=== PATIENT | male | born 1950 ===

== ENCOUNTER 2017-03-11 07:45 | Emergency (ER) | payer MEDICARE, MEDICAID ==
[2017-03-11] MEDS ORDERED: Naproxen 550 mg Tab PO STA (08:25)
--- NOTE | 2017-03-11 08:34 | C.PDOC ---
History Of Present Illness 66 y/o male presents to ED with complaint of right testicular pain associated with lump in same area for approximately "one month". Patient was evaluated by his PMD Dr. High for these symptoms, and sent for outpatient ultrasound ( December,). Patient has US report with him today, showed testicular cysts. Patient has not yet been evaluated by urologist. He denies fever, abdominal/ flank pain, dysuria/hematuria, penile discharge. Time Seen by Provider: 03/11/17 07:57 Chief Complaint (Nursing): Male Genitourinary History Per: Patient History/Exam Limitations: no limitations Onset/Duration Of Symptoms: Persistent Current Symptoms Are (Timing): Better Severity: Mild Quality Of Discomfort: "Pain" Associated Symptoms: denies: Fever, Chills, Diarrhea, Urinary Symptoms Past Medical History Reviewed: Historical Data, Nursing Documentation, Vital Signs Vital Signs: Last Vital Signs Temp 98.2 F 03/11/17 10:00 Pulse 87 03/11/17 10:00 Resp 16 03/11/17 10:00 BP 137/89 03/11/17 10:00 Pulse Ox 98 03/11/17 10:14 - Medical History PMH: HTN Family History: States: No Known Family Hx - Social History Hx Alcohol Use: No Hx Substance Use: No - Immunization History Hx Tetanus Toxoid Vaccination: No Hx Influenza Vaccination: No Hx Pneumococcal Vaccination: No Review Of Systems Except As Marked, All Systems Reviewed And Found Negative. Constitutional: Negative for: Fever, Chills Gastrointestinal: Negative for: Nausea, Vomiting, Abdominal Pain, Diarrhea Genitourinary: Positive for: Other (testicular pain ). Negative for: Dysuria, Frequency, Hematuria, Penile Discharge Skin: Negative for: Rash Physical Exam - Physical Exam Appears: Well, Non-toxic, No Acute Distress Skin: Warm, Dry Oral Mucosa: Moist Cardiovascular: Rhythm Regular Respiratory: Normal Breath Sounds, No Rales, No Rhonchi, No Wheezing Gastrointestinal/Abdominal: Normal Exam, Bowel Sounds, Soft, No Tenderness, No Rebound Back: Normal Inspection, No CVA Tenderness Male Genital: Normal Inspection, No Testicular Tenderness, No Testicular Swelling, No Inguinal Tenderness, No Inguinal Swelling, No Scrotal Swelling, Other (no masses, no erythema) Extremity: Normal ROM Neurological/Psych: Oriented x3 ED Course And Treatment O2 Sat by Pulse Oximetry: 98 (RA) Pulse Ox Interpretation: Normal - CT Scan/US Testicular Ultrasound Other Rad Studies (CT/US): Read By Radiologist, Radiology Report Reviewed CT/US Interpretation: Findings: Right testes: 3.4 x 1.9 x 2.9 centimeters. Normal flow. Homogeneous echotexture. Right epididymis measures 1.7 x 1.1 x 2.0 centimeters. Normal flow. Normal echotexture. Right epididymal cyst measuring .9 x .9 x 1.3 centimeters. Left testes: 3.7 x 2.1 x 3.1 centimeters. Normal flow. Homogeneous echotexture. Left epididymis measures 1.3 x 0.9 x 1.4 centimeters. Normal flow. Normal echotexture. Left epididymal cyst measures 6 x 5 x 6 millimeters. Small bilateral scrotal hydroceles are noted. Impression: Small bilateral scrotal hydroceles. Bilateral epididymal cysts. Progress Note: Patient given PO Naprosyn. UA and testicular US ordered. Patient has normal physical exam, no obvious swelling/eythema/tenderness of testicles. Reevaluation Time: 10:00 Reassessment Condition: Improved (Patient reassessed, in no current pain/ distress. He denies testicular pain/discomfort at this time. US shows B/L hydrocoeles and testicular cyst, UA (-). Patient given Rxs for Naprosyn and Tylenol #3, and was instructed to follow up with urology within 1 week. He understands he should return to ED if symptoms worsen.) Disposition Counseled Patient/Family Regarding: Studies Performed, Diagnosis, Need For Followup - Disposition Referrals: Daphne High MD [Staff Provider] - Toni Simmons Jr., MD [Staff Provider] - Disposition: HOME/ ROUTINE Disposition Time: 10:00 Condition: STABLE Additional Instructions: SEGUIMIENTO CON UROLOGA DENTRO DE 1 SEMANA USE EL MEDICAMENTO DEL DOLOR CHATA SEA NECESARIO DEVUELVA A LA SAMSON DE EMERGENCIA SI LOS SNTOMAS EMPEORARAN Prescriptions: Acetaminophen with Codeine [Tylenol with Codeine #3 Tablet] 1 each PO Q6 PRN # 12 tablet PRN Reason: pain Naproxen [Naprosyn Tab] 375 mg PO BID PRN #20 tab PRN Reason: pain Instructions: Hydrocele (ED) Print Language: AUSTRALIAN - POA Present On Arrival: None - Clinical Impression Clinical Impression: Bilateral hydrocele, Testicular cyst - Scribe Statement The provider has reviewed the documentation as recorded by the Raheemibjonny Arnold Provider Raheemibjonny Attestation: All medical record entries made by the Scribe were at my direction and personally dictated by me. I have reviewed the chart and agree that the record accurately reflects my personal performance of the history, physical exam, medical decision making, and the department course for this patient. I have also personally directed, reviewed, and agree with the discharge instructions and disposition.
[2017-03-11] MEDS ORDERED: Naproxen 550 mg Tab PO ONE (08:37)
[2017-03-11 09:24] LABS: RBC URINE < 1 /hpf (0-3); URINE BILIRUBIN NEGATIVE (NEGATIVE); URINE BLOOD NEGATIVE (NEGATIVE); URINE COLOR Yellow (YELLOW); URINE GLUCOSE (UA) NORMAL (Normal); URINE KETONE NEGATIVE (NEGATIVE); URINE LEUKOCYTE ESTERASE NEG Leu/uL (Negative); URINE PROTEIN 1+ mg/dL (NEGATIVE); URINE UROBILINOGEN NORMAL mg/dL (0.2-1.0); WBC URINE 1 /hpf (0-5)
--- NOTE | 2017-03-11 09:48 | US ---
Testicular ultrasound History: Right testicular pain. Comparison: None available. Technique: Real-time sonography was performed through the testicles. Findings: Right testes: 3.4 x 1.9 x 2.9 centimeters. Normal flow. Homogeneous echotexture. Right epididymis measures 1.7 x 1.1 x 2.0 centimeters. Normal flow. Normal echotexture. Right epididymal cyst measuring .9 x .9 x 1.3 centimeters. Left testes: 3.7 x 2.1 x 3.1 centimeters. Normal flow. Homogeneous echotexture. Left epididymis measures 1.3 x 0.9 x 1.4 centimeters. Normal flow. Normal echotexture. Left epididymal cyst measures 6 x 5 x 6 millimeters. Small bilateral scrotal hydroceles are noted. Impression: Small bilateral scrotal hydroceles. Bilateral epididymal cysts.
[2017-03-11 10:10] VITALS: BP 137/89; PULSE 87; RESP 16; TEMP 98.2
[2017-03-11 10:14] VITALS: O2SAT 98
== END 2017-03-11 10:09 | disposition home or self-care (01) ==
LOC: C.ER 07:45
DX: N43.3 Hydrocele, unspecified (principal); N44.2 Benign cyst of testis